=== PATIENT | female | born 1940 | race Caucasian/White ===

== ENCOUNTER 2017-07-28 07:14 | Day surgery (SDC) | payer MEDICARE ==
[~2017-07-28] VITALS: Ht 162.6 cm; Wt 96.8 kg
[2017-07-28] MEDS ORDERED: IOHEXOL 350 MG/ML 50 ML BTL (for Cath Lab) OTHER ONE (07:15)
[2017-07-28] MEDS ORDERED: NS 1000P @30 MLS/HR (KVO) IV SCH (07:45)
[2017-07-28 07:48] VITALS: BP 166/66; PULSE 58; RESP 18; TEMP 97.8; O2SAT 96
[2017-07-28 08:01] LABS: AUTOMATED NEUTROPHIL # 2.2 TH/MM3 (1.8-7.7); BASOPHIL % 0.9 % (0.0-2.0); EOSINOPHIL # 0.2 TH/MM3 (0-0.4); EOSINOPHIL % 4.5 % (0.0-4.0); HEMOGLOBIN 11.8 GM/DL (11.6-15.3); LYMPH % 23.8 % (9.0-44.0); LYMPHOCYTE # 0.8 TH/MM3 (1.0-4.8); MEAN CELL VOLUME 93.5 FL (80.0-100.0); MEAN CORPUSCULAR HEMOGLOBIN 31.4 PG (27.0-34.0); MEAN CORPUSCULAR HGB CONC 33.6 % (32.0-36.0); MEAN PLATELET VOLUME 9.8 FL (7.0-11.0); MONO % 10.2 % (0.0-8.0); MONOCYTE # 0.4 TH/MM3 (0-0.9); NEUT % 60.6 % (16.0-70.0); PLATELET COUNT 159 TH/MM3 (150-450); RED BLOOD COUNT 3.75 MIL/MM3 (4.00-5.30); RED CELL DISTRIBUTION WIDTH 12.6 % (11.6-17.2); WHITE BLOOD COUNT 3.6 TH/MM3 (4.0-11.0)
[2017-07-28] MEDS ORDERED: LOVA20TA PO (08:06)
[2017-07-28] MEDS ORDERED: ACET-822 PO (08:06)
[2017-07-28] MEDS ORDERED: PRAD150C PO (08:06)
[2017-07-28] MEDS ORDERED: SOTA160T PO (08:06)
[2017-07-28] MEDS ORDERED: HYDR25TA5 PO (08:06)
[2017-07-28 08:10] LABS: PROTHROMBIN TIME - PATIENT 10.2 SEC (9.8-11.6)
[2017-07-28 08:16] LABS: ALBUMIN 3.5 GM/DL (3.4-5.0); BICARBONATE 28.3 MEQ/L (21.0-32.0); CALCIUM 8.9 MG/DL (8.5-10.1); CREATININE 1.37 MG/DL (0.50-1.00)
--- NOTE | 2017-07-28 08:25 | RADRPT ---
EXAM DATE/TIME: 07/28/2017 08:06 [facility] COMPARISON: No previous studies available for comparison. INDICATIONS : Chest Pain MEDICAL HISTORY : Cardiovascular disease. SURGICAL HISTORY : Loop recorder ENCOUNTER: Initial ACUITY: 1 day PAIN SCORE: 3/10 LOCATION: chest FINDINGS: The heart and mediastinal contours are within normal limits. Note is made of a loop recorder overlyin g the left chest. There chronic interstitial changes within the pulmonary parenchyma. The lungs are o therwise clear. CONCLUSION: Chronic interstitial changes. No acute abnormality. Evans Urbina MD on July 28, 2017 at 8:22 Board Certified Radiologist. This report was verified electronically.
--- NOTE | 2017-07-28 08:48 | PD.FRAIL ---
Date: July 28, 2017 Height: 162.56 cm Weight: 96.8 kg BMI: 36.6 Assessment Performed: Outpatient Albumin 07/28/17 07:30: Blood Urea Nitrogen 28, Creatinine 1.37, Random Glucose 83, Albumin 3.5, Calcium Level 8.9, Sodium Level 144, Potassium Level 3.6, Chloride Level 108, Carbon Dioxide Level 28.3 Pass/Fail: Pass [place] Activities Daily Living Borja ADL Score: Bathing(bathes self/help in single area): [place] (1), Dressing(gets/puts clothes on self): [place] (1), Toileting(goes without help): [place] ( 1), [facility] or [facility] [place] (1), Continence( complete self-control): [place] (1), Feeding(self, prep by another allowed) : [place] (1), Total: 6 Pass/Fail: Pass (lives alone, still drives within town during day) Manager Programming Strength Grasp 1: 8 Grasp 2: 10 Grasp 3: 8 Average: 8.6 Pass/Fail: Fail 15-Foot Walk 15-Foot Walk (seconds): 9.8 Pass/Fail: Fail (no walking devices) Total Frailty Total Frailty (out of 4): 2 Frailty Index Score Reference Manager Programming Strength: BMI: <=23 Cutoff for flat breakdown processor strength(Kg): <=17 BMI: 23.1-26 Cutoff for flat breakdown processor strength(Kg): <=17.3 BMI: 26.1-29 Cutoff for flat breakdown processor strength(Kg): <=18 BMI: >29 Cutoff for flat breakdown processor strength(Kg): <=21 15-Foot Walk: Height: <=159 cm 15-Foot Walk Cutoff Time: >=7 seconds Height: >159 cm 15-Foot Walk Cutoff Time: >=6 seconds Geeta Feldman RN July 28, 2017 08:48
[2017-07-28] MEDS ORDERED: MIDAZOLAM HCL 2 MG/2 ML VIAL ONE (09:07)
[2017-07-28] MEDS ORDERED: HEPARIN-NS/PF FLUSH BAG 2,000 ML IV FLUSH ONE (09:07)
[2017-07-28] MEDS ORDERED: LIDOCAINE HCL 1% 50 ML VIAL INFIL PRN (10:15)
[2017-07-28] MEDS ORDERED: SODIUM CHLOR 0.9% 250 ML INJ 250 ML IV PRN (10:15)
[2017-07-28] MEDS ORDERED: ONDANSETRON HCL 4 MG/2 ML VIAL IV PUSH PRN (10:15)
[2017-07-28 10:27] LABS: BACTERIA, URINE RARE /hpf; BILIRUBIN, URINE NEG (NEG); BLOOD, URINE NEG (NEG); GLUCOSE,URINE NEG (NEG); HYALINE CAST, URINE 2 /lpf (RARE); KETONE, URINE NEG (NEG); MUCUS URINE FEW /lpf (OCC); NITRITE,URINE NEG (NEG); SQUAMOUS EPITHELIAL CELL URINE <1 /hpf (0-5); URINE COLOR YELLOW (YELLW/STRAW); URINE LEUKOCYTE ESTERASE SMALL (NEG)
[2017-07-28] MEDS ORDERED: ATROPINE SULFATE 1 MG/ML VIAL IV PUSH PRN (10:30)
--- NOTE | 2017-07-28 10:33 | CATHPROC ---
[place] HIS Report Study Information Study Number Admission Scheduled Start Study Start [id number] Jul 28 2017 7:14AM 07/28/2017 Jul 28 2017 9:00AM [facility] Cardiac Catheterization Admit Source Facility Department Other [facility] - Cut Out Worker Physician and Clinical Staff Initial Rafi Peters Wire Bound Box Machine Operatoradam Tavares RN, Memo Other cathlab, cathlab Recorder Juan Patel RCIS(BS) Recorder Drea Caballero BSN Scrub Patsy ChiuRT(R) Procedures Performed Procedure Location (Site) Vessel Name Coronary Angiograms LCA Left Coronary Coronary Angiograms RCA Right Coronary Equipment Time Energy Broker Description Size Mfg Part Number Used/Scraped ARROW INTERNATIONAL CATHETER, FR.7 BALLOON [id number] 09:01 FR 7 Used INC. WEDGE PRESSURE *[id number] TRANSDUCER, TREnsygniaAVE [id number] 09:01 GLEZ FELIX * Used W/STOCKCOCK *[id number] *[id number] 09:01 MEDLINE IND[employer]RIES PACK, CCL CUSTOM * Used *[id number] 09:01 [employer] PACER PEN, SKIN DUAL W/ RULER * Used *[id number] 09:27 MEDTRONIC JL 4.0 DXTERITY CATHETER FR 5 Used *[id number] 09:01 Osper WIRE, 3MMJ .035 180CM 180CM Used *[id number] 09:01 NAMIC MANIFOLD, 2 PORT * Used *[id number] 09:01 NAMIC MANIFOLD, 4 PORT * Used *[id number] 09:01 NYCOMED OMNIPAQUE, 350 MG, 150ML 150ML [id number] Used [id number] 09:01 NOLAN MEDICAL BLANKET,WARM AIR CCL * Used *[id number] 09:01 TERUMO MEDICAL SHEATH, FR5 TERUMO (10CM) FR 5 Used *[id number] 09:01 TERUMO MEDICAL SHEATH, FR7 TERUMO (10CM) FR 7 Used *[id number] Equipment Model, Serial, Lot Number and Expiration Data Description Model Number Serial Number Lot Number Expiration Date JL 4.0 DXTERITY CATHETER [id number] 12-10-2019 History: Current Medications Medication Dosage/Unit Route Frequency Last Date/Time Taken Beta Kenneth Statins (any) PRADAXA History: Allergies Allergy Reaction Penicillins adhesive tape History: Risk Factors Family History of Hypertension Dyslipidemia Previous KS Previous Heart Failure Premature CAD Yes Yes Yes No No Prior Valve Prior PCI Prior CABG Surgery No No No Cerebrovascular Peripheral Artery Chronic Lung On Dialysis Diabetes Disease Disease Disease No No No No No History: Stress Tests Stress or Imaging Studies Performed No History: Other Disease Selection Items HTN History: Other Current Smoker Method Quit Packs a Day Years Used Pack Years No Cigarettes 30 Years Ago 1 10 10 Labs Hgb (g/dl) Hct (%) WBC (l/cumm) Platelets (thousands) 11.60-17.00 35.00-51.00 4.00-11.00 150.00-450.00 11.8 35 3.6 155 Glucose (mg/dl) BUN (mg/dl) Creatinine (mg/dl) BUN:Creatinine (1:x) 74.00-106.00 7.00-18.00 0.50-1.30 10.00-20.00 83 28 1.3 21.5 Na (meq/l) K (meq/l) 136.00-145.00 3.50-5.10 144 3.6 INR (PTT:PT) 0.90-1.10 1 CPK-MB (ng/ML) 0.50-3.60 Not Drawn Medication Medication Total Dose (Bolus/Oral) Medication Total Dosage/Unit 1% XYLOCAINE 20 mL FENTANYL 50 mcg VERSED 1 mg Medications (Bolus/Oral) Medication Time Given Dosage/Unit Administered By Reason VERSED 07/28/2017 9:38:36 AM 1 mg Memo Tavares RN 1 mg VERSED given in lab by Memo Tavares RN in Left Antecubital via Peripheral IV. Ordered by Rafi Devries. FENTANYL 07/28/2017 9:38:43 AM 50 mcg Memo Tavares RN 50 mcg FENTANYL given in lab by Memo Tavares RN in Left Antecubital via Peripheral IV. Ordered by Rafi Coughlin. 1% XYLOCAINE 07/28/2017 9:43:04 AM 20 mL Rafi Devries 20 mL 1% XYLOCAINE given in lab by Rafi Devries in Right Groin via Subcutaneous. Medication (Drip) Medication Time Given Dosage/Unit Concentration/Unit Diluent (ml) Solutio n IV Solutions 07/28/2017 8:59:47 AM 0 mL (IV) 500 NaCl .9 Patient arrived on IV Solutions given by cathlab, cathlab in Left Antecubital via Peripheral IV. Pump /Drip Flow = 20 ml/hr using NaCl .9. Ordered by Rafi Devries. Initial Case Assessment Cardiovascular HR Rhythm NIBP Chest Pain 58 nsr 148/80 0 Edema Present Skin color Skin None Normal Warm Dry Circulatory - Right Pulses Dorsalis Pedis Femoral 1 2 Scale (0,1,2,3,4,d) Circulatory - Left Pulses Dorsalis Pedis Femoral 2 2 Scale (0,1,2,3,4,d) Neurological State Oriented to time-place- Alert Moves all extremities person Respiration - General Respiration Rate SpO2 (%) (B/min) 15 99 Final Case Assessment Cardiovascular HR Rhythm NIBP Chest Pain 62 nsr 156/76 0 Edema Present Skin color Skin None Normal Warm Dry Circulatory - Right Pulses Dorsalis Pedis Femoral 1 2 Scale (0,1,2,3,4,d) Circulatory - Left Pulses Dorsalis Pedis Femoral 2 2 Scale (0,1,2,3,4,d) Neurological State Oriented to time-place- Alert Moves all extremities person Respiration - General Respiration Rate SpO2 (%) (B/min) 15 99 Chronological Log Time Study Chronological Log 8:59:37 Patient arrived via Bed. 8:59:38 Patient Name, D.O.B, / Armband Verified By R.N. 8:59:38 Consent signed by the physician and the patient and verified by the Cut Out Worker staff. 8:59:39 Pre-op and post- op instructions given; patient acknowledges understanding of instructions. 8:59:39 Verbal Stimulation=2 Physical Stimulation=2 Airway=2 Respiration=2 TOTAL=8. (0=absent, 1=li mited, 2=present) 8:59:40 Presedation assessment performed by Cut Out Worker RN. 8:59:41 Immediate Presedation assesment performed by physician. 8:59:41 Patient has been NPO for More than 6Hrs. 8:59:42 Skin Breakdown- none per patient 8:59:44 Patient Warmer Placed on the Table. 8:59:44 Anatoly Prominences Protected 8:59:46 A # 20 IV was noted in the Antecubital (left). Grade = 0 Patient arrived on IV Solutions given by cathlab, cathlab in Left Antecubital via Peripheral IV . Pump/Drip Flow = 20 8:59:47 ml/hr using NaCl .9. Ordered by Rafi Devries. 8:59:48 History and physical on the chart or being dictated. Assessment: Initial Case, HR=58 BPM, Rhythm=nsr, LURC=722/80 mmhg, Chest Pain=0, Edema=None, Col or=Normal, Skin = Warm, Dry Right Pulses: John Ped=1, Femoral=2 9:09:28 Left Pulses: John Ped=2, Femoral=2 Neurological: State=Alert, Ox3, COTTO Respiration: Resp=15 B/min, SpO2=99 % Vitals capture started with the following parameters, Patient=Adult, Interval=5 min, Initial Pre mywrn=689 mmHg, 9:09:30 Deflation Rate=5 mmHg, Cuff placed on Left Arm 9:09:55 Reference ECG taken 9:10:09 HR=57 bpm, EWMC=431/80 mmhg, SpO2=99.0 %, Resp=14 B/min, Pain=0, Jacqueline=10, Pavon=2 9:12:40 Bilateral groins prepped with 2% chlorhexidine, and draped after a 3 minute waiting time. 9:15:08 HR=57 bpm, GUFY=766/80 mmhg, TyE2=664.0 %, Resp=13 B/min, Pain=0, Jacqueline=10, Pavon=2 9:18:25 MD paged 9:20:12 HR=58 bpm, MGNM=392/75 mmhg, SpO2=98.0 %, Resp=10 B/min, Pain=0, Jacqueline=10, Pavon=2 9:21:04 Pressure channel 1 zeroed. 9:25:13 HR=58 bpm, EWPB=917/78 mmhg, SpO2=97.0 %, Resp=10 B/min, Pain=0, Jacqueline=10, Pavon=2 9:27:00 MD responded 9:30:12 HR=59 bpm, VELI=033/79 mmhg, SpO2=99.0 %, Resp=11 B/min, Pain=0, Jacqueline=10, Pavon=2 9:35:13 HR=60 bpm, TZKS=558/73 mmhg, DqO7=019.0 %, Resp=8 B/min, Pain=0, Jacqueline=10, Pavon=2 9:37:41 MD arrived. 9:37:53 Contrast Scanned 9:37:53 Immediate Presedation assesment performed by physician. 9:38:36 1 mg VERSED given in lab by Memo Tavares RN in Left Antecubital via Peripheral IV. Ordered b y Rafi Devries. 9:38:43 50 mcg FENTANYL given in lab by Memo Tavares RN in Left Antecubital via Peripheral IV. Order ed by Rafi Devries. 9:40:14 HR=59 bpm, YQLV=541/76 mmhg, SpO2=92.0 %, Resp=14 B/min, Pain=0, Jacqueline=10, Pavon=2 Time Out. Correct patient, correct procedure, correct physician, power injector not loaded with contrast with surgical 9:40:28 team present. Time Out Concurred by MD and individual staff in procedure. 9:40:42 Case Start 9:40:55 Verbal Stimulation=2 Physical Stimulation=2 Airway=2 Respiration=2 TOTAL=8. (0=absent, 1=moser ited, 2=present) 9:43:04 20 mL 1% XYLOCAINE given in lab by Rafi Devries in Right Groin via Subcutaneous. 9:43:15 Access site was Right Femoral Artery. 9:43:18 A SHEATH, FR5 TERUMO (10CM) FR 5 was advanced into the Fem Art (right) using the Percutaneou s technique. 9:44:50 Access site was Right Femoral Vein. 9:45:00 A SHEATH, FR7 TERUMO (10CM) FR 7 was advanced into the Fem Vein (right) using the Percutaneo us technique. 9:45:13 HR=60 bpm, IVTE=496/70 mmhg, SpO2=92.0 %, Resp=11 B/min, Pain=0, Jacqueline=10, Pavon=2 9:45:20 A CATHETER, FR.7 BALLOON WEDGE PRESSURE FR 7 was inserted via Fem Vein (right) Recorded Pressure: RA, HR=60, Condition=Condition 1 9:47:20 (Right Atrium) RA 8/7/5 Recorded Pressure: RV, HR=61, Condition=Condition 1 9:47:41 (Right Ventricle) RV 38//9 Recorded Pressure: MPA, HR=60, Condition=Condition 1 9:48:50 (Main Pulmonary Artery) MPA Recorded Pressure: PCW, HR=60, Condition=Condition 1 9:49:09 (Pulmonary Capillary Wedge) PCW 9:49:35 Saturation: Site=PA (Pulmonary Artery) , O2=74.5 %, Hgb=11.8 gm/dl, Condition=Condition 1. U sed in calculation. 9:49:42 Saturation: Site=Ao (Aorta) , O2=94.3 %, Hgb=11.8 gm/dl, Condition=Condition 1. Used in calc ulation. 9:50:12 HR=60 bpm, UZFG=738/72 mmhg, SpO2=93.0 %, Resp=16 B/min, Pain=0, Jacqueline=10, Pavon=2 9:50:52 [place] Mae Catheter Removed A JL 4.0 DXTERITY CATHETER FR 5 was advanced over a wire. OMNIPAQUE, 350 MG, 150ML 150ML was us ed for 9:50:53 injections. Recorded Pressure: Ao, HR=59, Condition=Condition 1 9:51:59 (Aorta) Ao 135/57/87 9:52:08 The LCA was injected and visualized at various angles. OMNIPAQUE, 350 MG, 150ML 150ML used. 9:55:13 HR=61 bpm, EQRH=781/69 mmhg, SpO2=94 %, Resp=16 B/min, Pain=0, Jacqueline=10, Pavon=2 After removing the current catheter a JR 4.0 INFINITI CATHETER FR 5 was advanced over a WIRE, 3 MMJ .035 180CM 9:55:45 180CM. 9:57:55 The RCA was injected and visualized at various angles. OMNIPAQUE, 350 MG, 150ML 150ML used. 9:58:38 Catheter was removed 9:58:40 Case End 10:00:12 HR=62 bpm, QIUM=362/76 mmhg, SpO2=95.0 %, Resp=16 B/min, Pain=0, Jacqueline=10, Pavon=2 Assessment: Final Case, HR=62 BPM, Rhythm=nsr, IDDZ=555/76 mmhg, Chest Pain=0, Edema=None, [place] r=Normal, Skin = Warm, Dry Right Pulses: John Ped=1, Femoral=2 10:00:25 Left Pulses: John Ped=2, Femoral=2 Neurological: State=Alert, Ox3, COTTO Respiration: Resp=15 B/min, SpO2=99 % 10:00:49 Catheter(s) removed without difficulty 10:03:52 Arterial sheath removed; pressure applied to access site. 10:05:15 HR=60 bpm, ZKUY=562/82 mmhg, SpO2=99.0 %, Resp=14 B/min, Pain=0, Jacqueline=10, Pavon=2 10:10:53 HR=59 bpm, PEDN=320/77 mmhg, SpO2=95.0 %, Resp=16 B/min, Pain=0, Jacqueline=10, Pavon=2 10:15:58 HR=57 bpm, MZNN=432/73 mmhg, SpO2=97.0 %, Resp=58 B/min, Pain=0, Jacqueline=10, Pavon=2 10:18:31 Venous sheath removed; pressure applied to access site. 10:20:14 HR=59 bpm, EPQV=452/72 mmhg, SpO2=97.0 %, Resp=15 B/min, Pain=0, Jacqueline=10, Pavon=2 10:22:45 No case complications noted. 10:22:45 Cine recording checked. 10:22:47 Bedside Report will be given. 10:22:49 Verbal Stimulation=2 Physical Stimulation=2 Airway=2 Respiration=2 TOTAL=8. (0=absent, 1=li mited, 2=present) 10:22:55 A Left and Right Heart Cath was performed. 10:25:15 HR=58 bpm, DXMS=027/75 mmhg, SpO2=94.0 %, Resp=15 B/min, Pain=0, Jacqueline=10, Pavon=2 10:30:16 HR=58 bpm, KMTC=724/74 mmhg, SpO2=95.0 %, Resp=16 B/min, Pain=0, Jacqueline=10, Pavon=2 10:32:55 Sterile dressing applied to site 10:32:57 Vitals capture stopped. 10:32:59 Patient moved to stretcher End Study - Contrast Media Used In Study Contrast Total Opened (mL) Total Used (mL) Total Wasted (mL) Omnipaque 50 50 0 End Study - Maximum Contrast Load Max Contrast Load (mL) 372.4 End Study - Radiation Exposure Fluoro Time (minutes) 3.2 End Study - Sheaths Sheaths Pulled By Sheath Hold Time (min) Patsy Chiu 30 End Study - Patient Disposition Complications Transferred To Interventional Outcome No Cut Out Worker Holding No attempt made
--- NOTE | 2017-07-28 10:46 | MA ---
cc: Rafi Devries MD DATE: 07/28/2017 PROCEDURE PERFORMED: Cardiac catheterization. INDICATIONS: Severe aortic valve stenosis. METHOD: The risks, benefits and alternatives discussed with the patient. The patient understood and consented to the procedure. The patient brought into the catheterization lab, placed on the catheterization table. The right groin prepped and draped in the usual sterile fashion. The right groin was anesthetized with 2% lidocaine. The right common femoral artery was cannulated. A 5-Italian 11 cm sheath was placed without difficulty. The right femoral vein was accessed and a 7-Italian 11 cm sheath was placed without difficulty. RIGHT HEART CATHETERIZATION: 1. Right atrial pressure measured at 8 mmHg. 2. Right ventricular pressure measured at 38/4 mmHg. 3. Pulmonary arterial pressure measured 37/13 mmHg. 4. Pulmonary capillary wedge pressure 14 mmHg. 5. Cardiac output 7.9 liters per minute. 6. Cardiac index 3.9 liters per minute mg/m2. CORONARY ANGIOGRAPHY: The left coronary circulation was selectively engaged with a 5-Italian JL4 catheter. Right coronary circulation was selectively engaged with a 5-Italian JR4 catheter. FINDINGS: 1. Left main coronary has mild luminal irregularities. 2. Left anterior descending coronary has minor luminal irregularities in the mid segment about 20 to 30%. There is a diagonal branch and subbranch that has about a 50% stenosis just prior to the bifurcation. So there appears to be high grade stenosis. 3. Left circumflex gives rise to an obtuse marginal branch and has mild diffuse disease. 4. Right coronary artery is a dominant vessel giving rise to a posterior descending branch. Right coronary has minor luminal irregularities, gives rise to the posterior descending and posterolateral branches. CONCLUSIONS: 1. Mild nonobstructive coronary disease and moderate branch vessel coronary artery disease. 2. Normal left and right-sided filling pressures. PLAN: At this point, we will evaluate the patient for consideration of aortic valve replacement either via transcatheter modality or surgical. Rafi Devries MD CHIN/DL , 10:10 AM , 10:45 AM
[2017-07-28] MEDS ORDERED: ONDANSETRON ODT 4 MG TAB PO PRN (11:00)
[2017-07-28] MEDS ORDERED: LORazepam 2 MG/ML VIAL IV PUSH PRN (11:00)
[2017-07-28] MEDS ORDERED: BACITRACIN OINT 0.9 GM PKT TOP ONE (11:00)
[2017-07-28] MEDS ORDERED: METOCLOPRAMIDE HCL 10 MG/2 ML VIAL IV PUSH PRN (11:00)
[2017-07-28] MEDS ORDERED: SODIUM CHLOR 0.9% 250 ML INJ 250 ML IV ONE (14:00)
[2017-07-28] MEDS ORDERED: IOHEXOL 350 MG/ML 10 ML VIAL (for RAD DIAG) IVCONTRAST ONE (16:59)
--- NOTE | 2017-07-28 20:23 | RADRPT ---
EXAM DATE/TIME: 07/28/2017 16:44 [facility] COMPARISON: No previous studies available for comparison. INDICATIONS : Evaluate valve IV CONTRAST: 80 cc Visipaque (iodixanol) IV RADIATION DOSE: 12.08 CTDIvol (mGy) MEDICAL HISTORY : Hypertension. Skin cancer SURGICAL HISTORY : None. ENCOUNTER: Initial ACUITY: 1 day PAIN SCALE: 0/10 LOCATION: chest TECHNIQUE: Volumetric scanning was performed using a multi-row detector CT scanner. The data was post processed with a variety of visualization algorithms including full volume maximum intensity projection, multi -planar sliding thin slab reformation, curved planar reformation, and surface rendering techniques. Using automated exposure control and adjustment of the mA and/or kV according to patient size, radiat ion dose was kept as low as reasonably achievable to obtain optimal diagnostic quality images. DIC OM format image data is available electronically for review and comparison. FINDINGS: CARDIAC: Normal vessels without calcification or stenosis. There are no microcalcifications. There is no pericardial effusion AORTIC ROOT/VALVE: Tricuspid valve with moderate calcification and thickening present.. The aortic root measures 3 cm. Mid thoracic aorta measures 2.5 cm with no calcifications. THORACIC AORTA: Direct origin of the left vertebral artery from the aortic arch as a variant of normal. The arch vess els are widely patent. ABDOMINAL AORTA: No evidence of aneurysm, mural thrombus, dissection, mural calcification, or stenosis. CELIAC ARTERY: Celiac artery is widely patent. SMA: Superior mesenteric artery is widely patent. RIGHT RENAL ARTERY: Main and accessory right renal arteries are patent. LEFT RENAL ARTERY: Left renal artery is widely patent. RIGHT COMMON ILIAC: No evidence of aneurysm, mural thrombus, dissection, mural calcification, or stenosis. The common fe moral measures 6-7 mm. LEFT COMMON ILIAC: No evidence of aneurysm, mural thrombus, dissection, mural calcification, or stenosis. The common fe moral measures 7-8 mm. THORAX: Occasional areas of minimal scarring or atelectasis in the right lung. ABDOMEN: Gallstones. PELVIS: Fibroid uterus. Colonic diverticula. CONCLUSION: Thickened calcified aortic valve leaflets. No acute findings or findings to contraindicate aortic remy ve replacement Min Botello MD on July 28, 2017 at 20:11 Board Certified Radiologist. This report was verified electronically.
--- NOTE | 2017-07-29 07:54 | PD.CAR.PN ---
CVT Progress Note Subjective/Hospital Course: late entry, pt seen and evaluated sts data discussed with pt RISK SCORES About the STS Risk Calculator Procedure: AV Replacement Risk of Mortality: 3.56% Morbidity or Mortality: 22.352% Long Length of Stay: 12.051% Short Length of Stay: 19.711% Permanent Stroke: 2.902% Prolonged Ventilation: 17.779% DSW Infection: 0.455% Renal Failure: 5.474% Reoperation: 8.186% Objective: Vital Signs Date Time Temp Pulse Resp B/P (MAP) Pulse Ox O2 Delivery O2 Flow Rate FiO2 07/28/17 15:54 97 Room Air Result Diagram: 07/28/17 0730 07/28/17 0730 Imelda Nick July 29, 2017 07:54
--- NOTE | 2017-07-29 10:28 | MB ---
cc: Nelson García MD, Surya P MD Terwilliger, Jacqueline R ARNP DATE: 07/28/2017 DATE OF : 1940 IDENTIFYING DATA: A 69-year-old female, patient of Dr. Faizan Panda. REASON FOR CONSULTATION: Severe aortic stenosis, symptoms including unexplained gaps in memory, three episodes of syncope in the past. Apparently had worked up with Neurology, Neuropsych, was told no dementia. However, she did have an MRI of the brain 06/20/2017 that showed no acute intracranial abnormality, no acute infarct; however, there were diffuse involutional changes, chronic microvascular ischemia. Remote left gangliocapsular lacunar infarct. Carotid ultrasound showed no evidence for carotid stenosis. She underwent transthoracic echocardiogram which showed ejection fraction of 50-55%, the aortic valve area 0.84 with some trivial mitral regurgitation, transesophageal echocardiogram. PAST MEDICAL HISTORY: Includes anxiety, syncope, chronic kidney disease stage III, cervical disk displacement, hyperlipidemia, hypertension, obesity, body mass index of 30, paroxysmal atrial fibrillation, pulmonary sarcoidosis. PAST SURGICAL HISTORY: Includes arthrodesis, C2 anterior interbody decompression by Dr. Rivera, history of bilateral cataract surgery, colonoscopy. ALLERGIES: PENICILLIN. ADHESIVE TAPE. HOME MEDICATIONS: 1. Hydrochlorothiazide. 2. Lovastatin. 3. Multivitamin. 4. Pradaxa. 5. Sotalol. 6. Tylenol. SOCIAL HISTORY: The patient lives alone. Former smoker, smoked for about 10 years, quit 30 years ago. Does her own cooking and cleaning. She drives just in the local area of [facility]. The patient is . REVIEW OF SYSTEMS: GENERAL: No night sweats, fever, heat and cold intolerance. SKIN: No psoriasis, itching or hives. HEENT: No blurred vision, hearing loss. RESPIRATORY: No cough, shortness of breath. CARDIOVASCULAR: As above in the HPI. GASTROINTESTINAL: No diarrhea or vomiting. GENITOURINARY: No burning, frequency, urgency. OFFC SPEC: No history of TIA. Per the patient, she has no history of TIA or CVA. ENDOCRINOLOGY: No diabetes or hypothyroidism. PHYSICAL EXAMINATION: VITAL SIGNS: Blood pressure 110/60, heart rate of 80, temperature max 97.6. GENERAL: Awake, alert, in no acute distress. HEENT: Head is normocephalic, atraumatic. Pupils equal and reactive. Oral mucosa pink, moist. NECK: Supple. No JVD. HEART: Sounds S1, S2. Regular rate and rhythm. Grade 3/6 systolic murmur. LUNGS: Clear to auscultation. No wheezes, rales or rhonchi. ABDOMEN: Obese, soft, nontender. No masses or organomegaly. EXTREMITIES: She has got some trace edema. Good distal pulses. She does have a hematoma to her left anterior lower leg. She is not sure of how she hurt herself. IMPRESSION: This is a 69-year-old female with severe aortic stenosis with a valve area 0.84. STS risk for mortality 2.81. However, her other risks include paroxysmal atrial fibrillation, pulmonary sarcoidosis, MRI of the brain which does show evidence of a remote left gangliocapsular lacunar infarct, recent syncope. RECOMMENDATIONS: Recommendation is to proceed for TAVR procedure. Dictated by UZIEL Elder Patient examined and chart reviewed. Agree with above. 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 She also has bruises that she cannot explain. Given this and her other significant medical comrobidities, I think she will do better with TAVR therapy. MD MARKEL Morales/ERICH , 05:21 PM , 05:55 PM RITA
== END 2017-07-28 17:50 | disposition home or self-care (01) ==
LOC: HDIC 07:14 → HDOC 07:14
PROVIDERS: ATTEND Internal Medicine
DX: I35.0 Nonrheumatic aortic (valve) stenosis (principal); I25.10 Atherosclerotic heart disease of native coronary artery without angina pectoris; R07.9 Chest pain, unspecified; R55 Syncope and collapse; I48.0 Paroxysmal atrial fibrillation; E78.5 Hyperlipidemia, unspecified; I12.9 Hypertensive chronic kidney disease with stage 1 through stage 4 chronic kidney disease, or unspecified chronic kidney disease; N18.3 Chronic kidney disease, stage 3 (moderate); M50.20 Other cervical disc displacement, unspecified cervical region; E66.9 Obesity, unspecified; Z68.30 Body mass index [BMI] 30.0-30.9, adult; D86.0 Sarcoidosis of lung; Z79.01 Long term (current) use of anticoagulants; F41.9 Anxiety disorder, unspecified; Z85.828 Personal history of other malignant neoplasm of skin; Z01.818 Encounter for other preprocedural examination
CPT/HCPCS: 71046; 74174; 80048; 81001; 82040; 82810; 85025; 85610; 85730; 86850; 86900; 86901; 87641; 93456; 94010; 99152; 99153; C1769; C1893; J1644; J2250; J3010; J7050; Q9967

== ENCOUNTER 2017-09-24 10:25 | Inpatient (IN) ==
[2017-09-24] MEDS ORDERED: Aspirin 325 MG Tablet PO SCH (11:15)
[2017-09-24] MEDS ORDERED: Chlorhexidine Gluconate 2% 1 Pack (2 Cloths) TOPICAL SCH (11:15)
[2017-09-24] MEDS ORDERED: Mupirocin 2% Nasal Oint Topical Syringe EACH NARE SCH (11:15)
[2017-09-24] MEDS ORDERED: Glycopyrrolate Inj 1 MG/5 ML Syringe IV.PUSH ONE (12:00)
[2017-09-24] MEDS ORDERED: Phenylephrine/NS 1000 MCG/10ML Syringe IV.PUSH ONE (12:00)
[2017-09-24] MEDS ORDERED: Normosol-R pH 7.4 Inj 1,000 ML IV.CONT ONE (12:00)
[2017-09-24] MEDS ORDERED: Lidocaine PF 1% Inj 5 ML Syringe INFILTRATN ONE (12:00)
[2017-09-24] MEDS ORDERED: Sodium Chlor 0.9% Inj 1,000 ML IV.SIG ONE (12:00)
[2017-09-24] MEDS ORDERED: Vancomycin Inj 1 GM/200 ML PIGGYBACK IV.SIG SCH (12:00)
[2017-09-24] MEDS ORDERED: Neostigmine Inj 5 MG/5 ML Syringe IV.PUSH ONE (12:00)
[2017-09-24] MEDS ORDERED: fentaNYL Citrate Inj 100 MCG/2 ML Ampul ONE (12:30)
[2017-09-24] MEDS ORDERED: Heparin 10,000 UNITS/10 ML Vial (for IV use) ONE (13:03)
[2017-09-24] MEDS ORDERED: Protamine Sulfate Inj 50 MG/5 ML Vial ONE (13:03)
--- NOTE | 2017-09-24 13:23 | MH ---
cc: Rafi Devries MD DATE OF ADMISSION: 09/24/2017 INDICATION: Aortic stenosis. HISTORY OF PRESENT ILLNESS: This is a very nice 77-year-old female. She has history of chronic kidney disease, hyperlipidemia, hypertension, paroxysmal atrial fibrillation, who presented with 3 episodes of syncope. She has a known remote infarct. Transthoracic echocardiogram revealed left ventricular systolic ejection fraction of 55% and severe aortic stenosis. She underwent a thorough evaluation and workup and is now here for a scheduled transcatheter aortic valve replacement. PAST MEDICAL HISTORY: Anxiety, syncope, chronic kidney disease, cervical disk displacement, hyperlipidemia, hypertension, obesity, paroxysmal atrial fibrillation, pulmonary sarcoidosis. ALLERGIES: PENICILLIN AND ADHESIVE TAPE. HOME MEDICATIONS: 1. Hydrochlorothiazide. 2. Lovastatin. 3. Multivitamin. 4. Pradaxa. 5. Sotalol. 6. Tylenol. SOCIAL HISTORY: Remote tobacco use. No drug use. REVIEW OF SYSTEMS: A 12-point review is performed and negative unless otherwise noted in the History of Present Illness. PHYSICAL EXAMINATION: VITAL SIGNS: Stable. Blood pressure 110/55 mmHg, heart rate 80. GENERAL: Alert and oriented x3, in no acute distress. HEENT: Shows pupils reactive to light and accommodation. Extraocular movements are intact. NECK: No elevation of jugular venous distention. No thyromegaly. No lymphadenopathy. No carotid bruits. LUNGS: Clear to auscultation bilaterally. CARDIOVASCULAR: Irregularly irregular rhythm with a grade 3/6 crescendo decrescendo murmur. ABDOMEN: Nontender, nondistended. Bowel sounds positive. No hepatosplenomegaly. EXTREMITIES: Show no clubbing, cyanosis or edema. Good peripheral pulses. NEUROLOGIC: Cranial nerves intact. Motor and sensory grossly intact. LABORATORY DATA: WBC 3.6, hemoglobin 11.8, platelet count is 159. INR is 1. Sodium 144, potassium 3.6, BUN is 28, creatinine is 1.37. PREOPERATIVE ASSESSMENT: STS score 3.5% . Body mass index 34. Frailty score 2/4. The electrocardiogram shows sinus rhythm. Pulmonary function test shows FEV1 of 1.37 with moderate to severe restriction. Echocardiogram 06/21/2017 shows jet velocity of 4.3 meters/second, mean gradient 44 mmHg, calculated aortic valve area of 0.7 cm2. Cardiac catheterization performed on 07/28/2017 shows moderate diagonal branch disease, otherwise only mild luminal irregularities. Computed tomography analysis on 07/28/2017: Short annulus 20.5 mm, long annulus diameter 25.7 mm, perimeter 73.0 mm. Sinus of Valsalva is 29.1 mm. Sinotubular junction 28.0 mm. Left coronary height 10 mm. Right coronary height 15.7 mm. Minimal luminal diameter on the right and left are both 6.6 mm. ASSESSMENT: Severe aortic valve stenosis, functional [place] Heart Association class III. PLAN: The patient was evaluated by Cardiothoracic Surgery, both Dr. García and Dr. Kendall, and agree that this patient is an intermediate risk for surgical aortic valve replacement given comorbidities. She has elected to proceed with transcatheter aortic valve replacement. We will plan with a 29 mm Evolut R Medtronic bioprosthetic aortic valve. The risks, benefits and alternatives were discussed with the patient. The patient understood and consents to proceed. MD CHIN Lala/SB , 01:00 PM , 01:21 PM
--- NOTE | 2017-09-24 14:05 | ECG ---
Date Performed: 09/24/2017 Time Performed: 11:13:32 PTAGE: 77 years EKG: Sinus bradycardia. Prolonged QT interval Leftward axis Anterolateral ST-T changes are nonsp ecific Borderline ECG NO PREVIOUS TRACING DOCTOR: Moises Gutierrez Interpretating Date/Time 09/24/2017 14:03:57
[2017-09-24] MEDS ORDERED: Iohexol Inj 350 MG/ML 100 ML Bottle (for RAD Diag) IVCONTRAST ONE ×2 (14:39→15:15)
[2017-09-24] MEDS ORDERED: hydrALAZINE HCl Inj 20 MG/ML Vial IV.PUSH PRN (14:47)
[2017-09-24] MEDS ORDERED: Atropine Inj 1 MG/ML Vial IV.PUSH PRN (14:47)
[2017-09-24] MEDS ORDERED: Acetaminophen 325 MG Tablet PO PRN (14:47)
[2017-09-24] MEDS: Sod Chloride 0.9% Inj 1,000 ML IV.CONT SCH (14:51)
--- NOTE | 2017-09-24 15:00 | P.OP ---
- Preoperative Diagnosis (1) Aortic stenosis (2) Diastolic heart failure - Postoperative Diagnosis (1) Aortic stenosis (2) Diastolic heart failure Date of procedure: 09/24/17 Procedure: Transcatheter aortic valve replacement with a 29 Evolut Pro tissue valve LEESA Bilateral percutaneous femoral artery access with Perclose closure on the left Right percutaneous femoral venous access Aortography Fluoroscopy Implants: 29 Evolut PRO tissue valve Anesthesia: GETA Surgeon: Laurie Kendall MD Co-surgeon - Minor Operation and Findings: The risks, benefits, complications, treatment options, and expected outcomes were discussed with the patient. The possibilities of reaction to medication, pulmonary aspiration, perforation of viscus, bleeding, recurrent infection, the need for additional procedures, failure to diagnose a condition, and creating a complication requiring transfusion or operation were discussed with the patient. The patient concurred with the proposed plan, giving informed consent. The site of surgery properly noted/marked. The patient was taken to hybrid operating room, identified as Courtney Gore and the procedure verified as Transcatheter Aortic Valve Replacement. A Time Out was held and the above information confirmed. Standard monitoring lines and Baez catheter were placed. General anesthesia was induced. The patient was prepped and draped in a sterile fashion. Initially, right femoral arterial and venous access was acquired using a Seldinger percutaneous technique. The details of this procedure were dictated under separate note by cardiology. Once a pigtail was positioned in the aortic annulus and a temporary transvenous pacemaker wire was placed in the right ventricular apex and tested, the left femoral artery was accessed using a needle followed by a guidewire under fluoroscopic guidance. The patient was heparinized and 2 Perclose devices deployed for later closure. Serial dilators were used to dilate the left femoral artery to 16 Sami caliber. The Cook sheath was then inserted up to the distal abdominal aorta. Arch aortography was performed to define the implant view. A 29 Evolut PRO transcatheter aortic valve was then positioned in the annulus and deployed with the patient being paced at 120 beats per minute. Following deployment, the valve apparatus was withdrawn and arch aortography and LEESA were performed to assess the valve. The valve had no significant perivalvular leaks. Gradients were then measured and the sheath was removed. Perclose sutures were secured with good hemostasis. Protamine was administered. Sterile dressings were placed. At the end of the operation, all sponge, instruments, and needle counts were correct. The patient was transferred to the CVICU in stable condition. Findings: Uneventful deployment of 29 Evolut PRO Implants: 29 Evolut PRO Complications: none Disposition: to CVICU in stable condition
--- NOTE | 2017-09-24 15:52 | ECHRPT ---
Indication: CONCLUSIONS Normal left ventricular size. Mild concentric left ventricular hypertrophy. The left ventricular systolic function is normal with an estimated ejection fraction in the range of 55-60%. Structurally normal mitral valve. Trace mitral valve regurgitation. Severe aortic valve stenosis status post transcatheter aortic valve bioprosthesis. Trace aortic valve paravalvular regurgitation. BP: / HR: Rhythm: Technical Quality: Medications Complications Proc. Components The patient was brought to the diagnostic imaging area in a fasting state after o btaining an informed consent. The patient was premedicated with IV Versed and IV Fentanyl. The supervisor feed mill ior pharynx was sprayed with Cetacaine spray and the patient was administered viscous Xylocaine 2 %. The LEESA probe was passed into the posterior pharynx , mid-esophagus, distal esophagus, and gastric fundus. LEESA was performed at multiple levels. The patient tolerated the procedure well and there were no complications. The patient was transferred to the floor in satisfactory condition.. FINDINGS LEFT VENTRICLE Normal left ventricular size. Mild concentric left ventricular hypertrophy. The left ventricular systolic function is normal with an estimated ejection fraction in the range of 55-60%. RIGHT VENTRICLE Normal right ventricular size and systolic function. LEFT ATRIUM The left atrial size is normal. RIGHT ATRIUM The right atrial size is normal. ATRIAL APPENDAGES Normal left atrial appendage size with no evidence of thrombus formation. ATRIAL SEPTUM Normal atrial septal thickness without atrial level shunting by limited color doppler interrogation. AORTA The aortic root and proximal ascending aorta are normal in size on limited imaging. MITRAL VALVE Structurally normal mitral valve. Trace mitral valve regurgitation. AORTIC VALVE Severe aortic valve stenosis status post transcatheter aortic valve bioprosthesis. Trace aortic valve paravalvular regurgitation TRICUSPID VALVE Structurally normal tricuspid valve. No tricuspid valve stenosis or regurgitation. VESSELS The inferior vena cava is normal in size. PULMONARY VALVE The pulmonary valve is not well visualized. PERICADIUM No pericardial effusion. Rafi Devries MD, FACC (Electronically Signed) Final Date:24 September 2017 15:51
--- NOTE | 2017-09-24 16:18 | MA ---
cc: Rafi Devries MD DATE: 09/24/2017 PROCEDURE: Transcatheter aortic valve replacement. PSYCHIATRIC SOCIAL WORKER: Rafi Devries MD, [facility] PRIMARY SURGEON: Dr. Laurie Kendall MD PROCEDURES PERFORMED: 1. Fluoroscopy with interpretation. 2. Temporary transvenous pacemaker placement. 3. Transcatheter aortic valve replacement. 4. Ascending aortography. 5. Transesophageal echocardiogram. METHOD: Risks, benefits and alternatives discussed with the patient. The patient understood and consented to the procedure. DESCRIPTION OF PROCEDURE: The patient was brought to catheterization lab and placed on the catheterization table. Bilateral groins were prepped and draped in sterile fashion. The right groin was anesthetized with 2% lidocaine. The right common femoral artery and vein were accessed and 5-Emirati 11 cm sheath was placed without difficulty. Left common femoral artery was cannulated. An 8-Emirati sheath was placed, followed by 2 Perclose devices and a 16-Emirati sheath. ASCENDING AORTOGRAPHY: Ascending aortography was performed in right anterior oblique view with good opacification. The 3 cusps were identified in parallax. TRANSESOPHAGEAL ECHOCARDIOGRAM: Please see separate report. TEMPORARY TRANSVENOUS PACEMAKER: Right jugular venous sheath was placed and the balloon tipped temporary transvenous pacemaker was advanced to the right ventricular apex. Appropriate capture and pacing was confirmed. TRANSCATHETER AORTIC VALVE REPLACEMENT: A 6-Emirati AL1 catheter was advanced to ascending aorta. A 0.035-inch Amplatz Super Stiff wire was advanced across the aortic valve into the left ventricle. Amplatz catheter was advanced into the left ventricle and the wire removed. J wire was advanced into the apex of left ventricle and the catheter removed. 5-Emirati pigtail catheter was advanced to the apex and the wire removed, followed by a 0.035 inch 260 cm Confida wire to the left ventricular apex. The catheter was removed. The 16-Emirati sheath was then removed and wire left in place. The 16-Emirati Medtronic, 29 mm Evolut R aortic valve device and sheath were advanced into the left common femoral artery up to the level of the descending aorta. The device was then advanced across the aortic valve. With fluoroscopic and angiographic guidance, position of the valve was confirmed and the device was fully deployed. After confirmation of appropriate positioning the device was then released. Repeat transesophageal echocardiogram did reveal no significant paravalvular leak with resolution of aortic stenosis. The sheath was removed and 2 Perclose device and 8-Emirati Angio-Seal deployed in the left common femoral artery with good hemostasis and two 5-Emirati VASCADE device was deployed in the right common femoral artery and vein with good hemostasis and heparin was administered throughout the entire procedure to maintain appropriate anticoagulation. CONCLUSIONS: 1. Successful transcatheter aortic valve replacement. 2. Successful utilization transesophageal echocardiography and temporary transvenous pacemaker. Intraoperative postop deployment transesophageal echocardiogram findings: Post-aortic valve area of 1.6 squared. Post-implant mean gradient 6 mmHg. Post-implant peak velocity 1.8 meters per second, and there was trivial paravalvular aortic insufficiency. PLAN: The patient will be monitored closely. Will consult electrophysiology for input related to temporary transvenous pacemaker and/or permanent pacemaker. We will initiate Plavix. We will hold off on initiation of Pradaxa for approximately 48 hours, at which point she will be on only Pradaxa and Plavix in the long run. Will obtain a limited transthoracic echocardiogram tomorrow. Rafi Devries MD CHIN/TL , 03:03 PM , 04:16 PM
--- NOTE | 2017-09-24 20:03 | P.PCN ---
Date of procedure: 09/24/17 Pre-op diagnosis: severe aortic stenosis Post-op diagnosis: same Procedure: Procedure: Transesophageal Echocardiography Diagnosis: Severe aortic stenosis Indications: Perioperative planning for transcatheter aortic valve replacement Consent: Obtained Anesthesia: General endotracheal anesthesia Description of the Procedure: The patient was sedated and mechanically ventilated. The echo probe was inserted easily and without resistance. At the conclusion of the procedure, the echo probe was removed. Please see detailed echocardiogram report for formal findings. Preliminary Findings (not confirmed): Pre-procedure: 1) grossly preserved biventricular function 2) Severe aortic stenosis 3) no clinically significant AI, MR, TR 4) no pericardial effusion 5) no evidence of intra-atrial shunting by color flow Doppler Post-procedure: 1) s/p successful placement of transcatheter aortic valve 2) no evidence of bioprosthetic valve stenosis 3) no perivalvular leak 4) no pericardial effusion The patient tolerated the procedure well with no hemodynamic instability. There were no immediate complications noted. There was minimal EBL. I personally performed the procedure.
--- NOTE | 2017-09-24 20:10 | P.CONCC ---
History of Present Illness Service: Critical Care Medicine Consult date: 09/24/17 Requesting Physician: Rafi Devries Reason for Consult: perioperative management of medical comorbidities Primary Care Provider: Tiffany Moreno Family Provider: Tiffany Moreno History of Present Illness: This is a 77-year-old female with severe symptomatic aortic stenosis who presents for elective transcatheter aortic valve replacement via groin access. She underwent uncomplicated procedure. She arrives to the CVICU extubated arousing from anesthesia. Due to her arousal from anesthesia a full and complete review of systems is unobtainable. Her limited review systems is negative for nausea, vomiting, headache, sore throat, chest pain, shortness of breath. Review of Systems Arousing from anesthesia. Limited review of systems negative unless stated in the HPI. All other systems reviewed negative except as stated in HPI, unobtainable due to mental status PMFSH - History History Provided By: Patient, Medical Record - Medical History Medical History: Medical History (Last Updated 09/24/17 @ 11:17 by Sonam Crane RN) Aortic stenosis Basal cell carcinoma of skin of face Chronic kidney disease Hyperlipidemia Hypertension - Tobacco History Smoking Status: Former smoker - Alcohol History How Often Do You Have a Drink Containing Alcohol: 2 to 3 times a week Medications and Allergies Active Medications: Active Medications Acetaminophen (Tylenol) 650 mg PO Q4H PRN PRN Reason: PAIN SCALE 1 TO 2 Stop: 09/25/17 14:46 Aspirin (Aspirin) 325 mg PO DUMPER OPERATOR [facility] Stop: 09/27/17 11:12 Last Admin: 09/24/17 11:36 Dose: 325 mg Atropine Sulfate (Atropine Inj) 0.5 mg IV.PUSH UNSCH PRN PRN Reason: VAGAL REPONSE Stop: 09/25/17 14:46 Chlorhexidine Gluconate (Chlorhexidine 2% Cloth) 3 pack TOPICAL [employer]MP[employer] [facility] Stop: 09/27/17 11:12 Clonidine HCl (Catapres) 0.2 mg PO Q6H PRN PRN Reason: SBP > 160 mmHg Clopidogrel Bisulfate (Plavix) 75 mg PO DAILY TAM Ferrous Sulfate (Ferosul) 325 mg PO DAILY TAM Furosemide (Lasix) 20 mg PO DAILY TAM Hydralazine HCl (Apresoline Inj) 10 mg IV.PUSH Q30M PRN PRN Reason: SBP > 160 mmHg Last Admin: 09/24/17 16:39 Dose: 10 mg Vancomycin/Sodium Chloride (Vancomycin Inj) 1 gm in 200 mls @ 200 mls/hr IV.SIG DUMPER OPERATOR [facility] Stop: 09/27/17 11:13 Last Infusion: 09/24/17 14:47 Dose: 200 mls/hr Sodium Chloride (Ns Inj) 1,000 mls @ 125 mls/hr IV.CONT .Q8H [facility] Last Infusion: 09/24/17 14:51 Dose: 125 mls/hr Mupirocin (Bactroban 2% Nasal Oint) 1 applicatio EACH NARE [employer]MP[employer] [facility] Stop: 09/27/17 11:12 Oxycodone/Acetaminophen (Percocet 5/325 Mg) 1 tab PO Q6H PRN PRN Reason: PAIN SCALE 3 TO 5 Last Admin: 09/24/17 16:01 Dose: 1 tab Povidone Iodine (Betadine 5% Antisepsis Kit) 1 applicatio TOPICAL DUMP[employer] [facility] Stop: 09/27/17 11:12 Allergies Allergy/AdvReac Type Severity Reaction Status Date / Time adhesive tape Allergy Unknown Rash Verified 09/24/17 10:53 Penicillins Allergy Unknown Rash Verified 09/24/17 10:53 Home Medications Medication Instructions Recorded Confirmed Type dabigatran etexilate [Pradaxa] 150 mg PO BID 09/24/17 09/24/17 History hydrochlorothiazide 25 mg PO DAILY 09/24/17 09/24/17 History levetiracetam [Keppra] 250 mg PO Q12H 09/24/17 09/24/17 History lovastatin 20 mg PO QPM 09/24/17 09/24/17 History sotalol 80 mg PO Q12H 09/24/17 09/24/17 History Physical Exam Vital signs: Vital Signs 09/24/17 11:13 09/24/17 15:00 09/24/17 15:50 Temperature 36.7 C 36.7 C Pulse Rate 66 55 L 55 L Respiratory Rate 18 16 Blood Pressure 126/78 160/62 H Pulse Oximetry 99 100 Intake & Output 09/24/17 09/24/17 09/25/17 06:59 18:59 06:59 Intake Total 2100 / 2100 Output Total 730 / 730 Balance 1370 / 1370 Weight 95.8 kg Intake: IV 800 / 800 NS Inj 1,000 ML @ 125 mls/hr IV 800 / 800 .CONT .Q8H [facility] Rx#:[id number] Vancomycin Inj 1 gm In 200 ml @ 0 / 0 200 mls/hr IV.SIG DUMPER OPERATOR [facility] Rx#:[id number] Anesthesia Amount 1300 / 1300 Output: Estimated Blood Loss 300 / 300 Urine Amount (Catheter) 430 / 430 Indwelling Temp Sensing 430 / 430 Catheter Other: Weight On Admission 95.8 kg Narrative: GENERAL: Frail elderly female lying in bed, arousing from anesthesia HEENT: Normocephalic. Atraumatic. Pupils equal, round, reactive, conjugate. Mucous membranes are moist NECK: Trachea is midline. There is no JVD. right IJ introducer sheath with transvenous pacer in place, site is clean and dry, dressing intact. CHEST: unlabored. equal chest rise. nc o2. CARDIOVASCULAR: normal rate, regular rhythm. Transvenous pacer is set VVI at a backup rate of 50. not currently paced. ABDOMEN: Soft, nontender, nondistended. No guarding. MUSCULOSKELETAL: Pulses 2+. No peripheral edema. bilateral groin sites are clean and dry, no evidence of hematoma, dressing intact. distal LE pulses are Dopplerable. NEUROLOGICAL: RASS -2. Arousing from anesthesia. follows commands. moves all extremities. no focal deficits. - Urinary Catheter Management Indwelling Temp Sensing Catheter Cath placed during this visit: yes Reason for continuing: Hourly intake/output Insertion date: 09/24/17 Insertion time: 13:18 Assessment and Plan - Assessment and Plan Plan: Assessment: 77-year-old female postop day 0 status post transcatheter aortic valve replacement. Admit to ICU for close monitoring. s/p TAVR 09/24 via common iliac access - frequent neurovascular checks - close uop monitoring - mivf - anticoagulation per Dr. Devries Hypertension - restart home meds prn for goal sbp < 180 Hyperlipidemia - restart home statin Chronic Kidney disease, unknown stage - mivf - close uop monitoring Seizure disorder - restart home keppra I.S. to bedside OOB after flat time advance diet as tolerated If remains stable overnight, can transition out of ICU tomorrow. Critical care medicine will continue to follow while patient remains in the CVICU.
[2017-09-24] MEDS: levETIRAcetam 250 MG Tablet PO SCH (22:11)
[2017-09-25 04:33] LABS: Hematocrit 30.1 % (35.0-46.0); Hemoglobin 10.1 gm/dL (11.6-15.3); Mean Corpuscular HGB Conc 33.8 % (32.0-36.0); Mean Corpuscular Volume 91.8 fL (80.0-100.0); Mean Platelet Volume 9.3 fL (7.0-11.0); Platelet Count 123 th/mm3 (150-450); Red Blood Count 3.28 mil/mm3 (4.00-5.30); White Blood Count 5.7 th/mm3 (4.0-11.0)
[2017-09-25 05:13] LABS: Calcium 8.9 mg/dL (8.5-10.1); Carbon Dioxide 21.5 meq/L (21.0-32.0); Potassium 3.5 meq/L (3.5-5.1)
--- NOTE | 2017-09-25 08:30 | P.PNCA ---
Subjective Interval history: doing well complains of "back pain" from being in bed yesterday so long no other complaints Physical Exam Vital signs: Vital Signs 09/24/17 11:13 09/24/17 15:00 09/24/17 15:50 Temperature 98.0 F 98.0 F Pulse Rate 66 55 L 55 L Respiratory Rate 18 16 Blood Pressure 126/78 160/62 H Pulse Oximetry 99 100 09/24/17 20:00 09/24/17 21:00 09/25/17 00:00 Temperature 97.6 F 97.8 F Pulse Rate 67 68 Respiratory Rate 18 18 Blood Pressure 147/50 H 124/46 L Pulse Oximetry 100 98 99 09/25/17 07:40 Temperature Pulse Rate Respiratory Rate Blood Pressure Pulse Oximetry 97 Intake & Output 09/24/17 09/25/17 09/25/17 18:59 06:59 18:59 Intake Total 2100 / 2100 Output Total 730 / 730 Balance 1370 / 1370 Weight 95.8 kg Intake: IV 800 / 800 NS Inj 1,000 ML @ 125 mls/hr IV 800 / 800 .CONT .Q8H [facility] Rx#:[id number] Vancomycin Inj 1 gm In 200 ml @ 0 / 0 200 mls/hr IV.SIG DECK WORKER [facility] Rx#:[id number] Anesthesia Amount 1300 / 1300 Output: Estimated Blood Loss 300 / 300 Urine Amount (Catheter) 430 / 430 Indwelling Temp Sensing 430 / 430 Catheter Other: Weight On Admission 95.8 kg - Constitutional no acute distress - Routine HEENT Exam Eye: Present: PERRL ENT: Present: mucous membranes moist - Routine Neck Exam Absent: JVD - Routine Respiratory Exam Present: CTA bilaterally - Routine Cardiovascular Exam Present: RRR, murmur Comments: / SM - Routine Abdominal Exam Present: soft, normoactive bowel sounds - Urinary Catheter Management Indwelling Temp Sensing Catheter Cath placed during this visit: yes Reason for continuing: Hourly intake/output Insertion date: 09/24/17 Insertion time: 13:18 Assessment and Plan - Plan aortic stenosis - s/p TAVR LBBB - new. await EP input. NPO. possible EPS ambulate continue temp pacer till EP evaluation hold BB asa plavix statin transfer to intermediate level of care
[2017-09-25] MEDS: Ferrous Sulfate 325 MG Tablet PO SCH (08:50)
[2017-09-25] MEDS: Furosemide 40 MG Tablet PO SCH (08:50)
[2017-09-25] MEDS: levETIRAcetam 250 MG Tablet PO SCH ×2 (08:50→21:39)
[2017-09-25] MEDS: Sod Chloride 0.9% Inj 1,000 ML IV.CONT SCH ×4 (11:46→21:40)
[2017-09-25] MEDS ORDERED: Phenylephrine/NS 1000 MCG/10ML Syringe IV.PUSH ONE (12:00)
[2017-09-25] MEDS ORDERED: Lidocaine PF 1% Inj 5 ML Syringe INFILTRATN ONE (12:00)
--- NOTE | 2017-09-25 12:24 | ECHRPT ---
Indication: S/P TAVR CONCLUSIONS Normal left ventricular size. Mild concentric left ventricular hypertrophy. The left ventricular systolic function is grossly normal on limited imaging. Status-post bioprosthetic percutaneous aortic valve replacement. No aortic valve regurgitation. Aortic valve mean gradient is 16 mmHg. BP: / HR: Rhythm: MEASUREMENTS (Male / Female) Normal Values Technical Quality: 2D ECHO LVOT Diameter 1.3 cm Aortic Root Diameter 2.2 cm M-MODE LV Diastolic Diameter MM 3.9 cm 4.2 - 5.9 / 3.9 - 5.3 cm LV Systolic Diameter MM 2.4 cm LV Ejection Fraction MM Teich 70.9 % IVS Diastolic Thickness MM 1.1 cm 0.6 - 1.0 / 0.6 - 0.9 cm LVPW Diastolic Thickness MM 1.1 cm 0.6 - 1.0 / 0.6 - 0.9 cm LV Relative Wall Thickness MM 0.6 0.24 - 0.42 / 0.22 - 0.42 RV Diastolic Diameter MM 1.6 cm DOPPLER AV Peak Velocity 274.0 cm/s AV Peak Gradient 30.0 mmHg AV Mean Gradient 16.0 mmHg AV Velocity Time Integral 55.5 cm LVOT Peak Velocity 157.0 cm/s LVOT Peak Gradient 9.9 mmHg LVOT Velocity Time Integral 27.8 cm AV Area Cont Eq vti 0.7 cm AV Area Cont Eq pk 0.8 cm FINDINGS LEFT VENTRICLE Normal left ventricular size. Mild concentric left ventricular hypertrophy. The left ventricular systolic function is grossly normal on limited imaging. RIGHT VENTRICLE Normal right ventricular size and systolic function. LEFT ATRIUM The left atrial size is normal. RIGHT ATRIUM The right atrial size is normal. ATRIAL SEPTUM Normal atrial septal thickness without atrial level shunting by limited color doppler interrogation. AORTA The aortic root and proximal ascending aorta are normal in size on limited imaging. MITRAL VALVE Structurally normal mitral valve. No mitral valve stenosis or regurgitation. AORTIC VALVE Status-post percutaneous aortic valve replacement. No aortic valve regurgitation. Aortic valve mean gradient is 16 mmHg. TRICUSPID VALVE Structurally normal tricuspid valve. No tricuspid valve stenosis or regurgitation. PULMONARY VALVE The pulmonary valve is not well visualized. VESSELS The inferior vena cava is normal in size. PERICARDIUM No pericardial effusion. Rafi Devries MD, FACC (Electronically Signed) Final Date:25 September 2017 12:22
--- NOTE | 2017-09-25 13:36 | ECG ---
Date Performed: 09/24/2017 Time Performed: 15:27:18 PTAGE: 77 years EKG: Sinus bradycardia with borderline 1st degree A-V block Left axis deviation Left bundle bran ch block Possible inferior infarct - age undetermined Low QRS voltages in limb leads Compared to prev ious tracing Left bundle branch block is new. Clinical correlation is strongly recommended Abnormal E CG PREVIOUS TRACING : 09/24/17 DOCTOR: Syed Alfaro Interpretating Date/Time 09/25/2017 13:30:36
--- NOTE | 2017-09-25 13:38 | ECG ---
Date Performed: 09/25/2017 Time Performed: 03:39:42 PTAGE: 77 years EKG: Sinus rhythm Left axis deviation Left bundle branch block Possible inferior infarct - age undetermined Low QRS vo ltages in precordial leads Clinical correlation is strongly recommended Abnormal ECG NO PREVIOUS TRACING DOCTOR: Syed Alfaro Interpretating Date/Time 09/25/2017 13:35:46
[2017-09-25] MEDS ORDERED: Heparin/NS PF Inj 500 ML ONE (16:47)
--- NOTE | 2017-09-25 17:24 | CATHPROC ---
[employer] HIS Report Study Information Study Number Admission Scheduled Start Study Start [id number] Sep 24 2017 10:25AM 09/25/2017 Sep 25 2017 3:27PM Lilly Service Electrophysiology Study Admit Source Facility Department Other [facility] - Accountant Clerk Physician and Clinical Staff Initial Charmaine Obrien Coil Tier AshelyIssac,RT(R) Coil Tier Priyanka Prado,RT(R) TECH2 Other Anesthesia, DESKTOP PUBLISHER Recorder Yolanda Arteaga,AMANUEL Scrub Chen Schneider,EFRAÍN Procedures Performed Procedure Ablation Procedure Cardioversion Equipment Time Edger Tailer Description Size Mfg Part Number Used/Scraped [id number] 15:29 [employer] BLANKET,WARM AIR CCL * Used *[id number] 15:29 [employer] PACK, CCL CUSTOM * Used *[id number] 15:29 [employer] PACER [place]AS, LIMB * 2530 *[id number] Used [id number] 15:30 [employer] CATHETER, JSN, QUAD FR 5 Used *[id number] 15:30 [employer] CATHETER, JSN, QUAD FR 5 Used *[id number] 15:30 [employer] CATHETER, JSN, QUAD FR 5 Used *[id number] 15:30 [employer] CATHETER, JSN, QUAD FR 5 Used *[id number] 15:30 [employer] SHEATH, EPS, FR5 FAST CATH FR 5 Used *[id number] [id number] 15:30 [employer] SHEATH, EPS, FR5 FAST CATH FR 5 Used *[id number] 15:30 [employer] SHEATH, EPS, FR5 FAST CATH FR 5 Used *[id number] 15:30 [employer] SHEATH, EPS, FR6 FAST CATH FR 6 Used *[id number] History: Allergies Allergy Reaction Penicillins Rash adhesive tape Rash History: Risk Factors Hypertension Dyslipidemia Previous LA Yes Yes Yes Labs Hgb (g/dl) Hct (%) RBC (MIL/MM3) WBC (l/cumm) Platelets (thousands) 11.60-17.00 35.00-51.00 4.00-5.90 4.00-11.00 150.00-450.00 10.0 30 3.2 5.7 123 Glucose (mg/dl) BUN (mg/dl) Creatinine (mg/dl) BUN:Creatinine (1:x) 74.00-106.00 7.00-18.00 0.50-1.30 10.00-20.00 80 24 1.1 21.8 Na (meq/l) K (meq/l) 136.00-145.00 3.50-5.10 141 3.5 INR (PTT:PT) 0.90-1.10 1 Medication Medication Total Dose (Bolus/Oral) Medication Total Dosage/Unit 2% XYLOCAINE 50 mL AMIODARONE 300 mg Medications (Bolus/Oral) Medication Time Given Dosage/Unit Administered By Reason 2% XYLOCAINE 09/25/2017 4:47:44 PM 50 mL Charmaine Vivar 50 mL 2% XYLOCAINE given in lab by Charmaine Vivar in Right Groin via Subcutaneous. AMIODARONE 09/25/2017 5:04:26 PM 300 mg Anesthesia, DESKTOP PUBLISHER As per physicians gema bal order 300 mg AMIODARONE given in lab by Anesthesia, DESKTOP PUBLISHER via Central IV. Ordered by Charmaine Vivar. Reason: As per physicians verbal order. right jugular site Initial Case Assessment Cardiovascular Edema Present Skin color Skin Mild Normal Warm Dry Circulatory - Right Pulses Dorsalis Pedis 1 Scale (0,1,2,3,4,d) Circulatory - Left Pulses Dorsalis Pedis 1 Scale (0,1,2,3,4,d) Circulatory - Lower Extremities Color Lower Right Color Lower Left Normal Normal Neurological State Oriented to time-place- Alert Moves all extremities person Respiration - General Respiration Rate SpO2 (%) (B/min) 20 96 Final Case Assessment Cardiovascular HR Rhythm NIBP Chest Pain 95 af 111/57 0 Edema Present Skin color Skin Mild Normal Warm Dry Circulatory - Right Pulses Dorsalis Pedis 1 Scale (0,1,2,3,4,d) Circulatory - Left Pulses Dorsalis Pedis 1 Scale (0,1,2,3,4,d) Circulatory - Lower Extremities Color Lower Right Color Lower Left Normal Normal Neurological State Drowsy Moves all extremities Respiration - General Respiration Rate SpO2 (%) (B/min) 16 100 Chronological Log Time Study Chronological Log 15:36:33 Dr Vivar made aware of pt taking plavix today and INR 1 from 09/23/19. Stated "it's ok". 16:10:34 Patient arrived via Bed. 16:10:37 Patient Name, D.O.B, / Armband Verified By R.N. 16:10:39 Consent signed by the physician and the patient and verified by the Accountant Clerk staff. 16:10:49 Anesthesia at bedside. Assumes care of patient. Diego 16:15:43 Pre-op and post- op instructions given; patient acknowledges understanding of instructions. 16:15:46 Verbal Stimulation=2 Physical Stimulation=2 Airway=2 Respiration=2 TOTAL=8. (0=absent, 1=li mited, 2=present) 16:18:24 Patient has been NPO for More than 6Hrs. 16:18:26 Skin Breakdown- left wrist w dressing 16:18:35 Patient Warmer Placed on the Table. 16:18:36 Disposable Defibrillator Pads Placed On Patient. 16:18:38 Anatoly Prominences Protected 16:18:40 An IV was noted in the Jugular Vein (right). Grade = 0 0.9ns kvo connected. 16:18:42 History and physical on the chart or being dictated. 16:18:45 Unable to flush right hand 18g IV and Left AC 20g IV. 16:20:09 MD arrived. Assessed pt et orderd for temp pacer wirre to be removed. 16:21:40 Bilateral groins prepped with 2% chlorhexidine, and draped after a 3 minute waiting time. Assessment: Initial Case, Edema=Mild, Color=Normal, Skin = Warm, Dry Right Pulses: John Ped=1 Left Pulses: John Ped=1 16:24:00 Lower Right Extremities: Color=Normal Lower Left Extremities: Color=Normal Neurological: State=Alert, Ox3, COTTO Respiration: Resp=20 B/min, SpO2=96 % 16:31:04 Temporary pacer removed by 16:36:09 Table restraints applied according to hospital policy 16:40:31 Reference ECG taken 16:44:39 Case Start Time Out. Correct patient, procedure, procedure equipment, site and side verified with physicia n present. Time 16:47:00 concurred by MD, individual staff and DESKTOP PUBLISHER. Time Out #2 - Consents verified, patient in correct position, all results are labled and displa yed, safety precautions 16:47:20 taken, antibiotics administered. Time out concurred by MD, individual staff and DESKTOP PUBLISHER in procedu re 16:47:44 50 mL 2% XYLOCAINE given in lab by Charmaine Vivar in Right Groin via Subcutaneous. 16:48:32 Vascular access was obtained in the Fem Vein (right). 16:48:36 Vascular access was obtained in the Fem Vein (right). 16:48:38 Vascular access was obtained in the Fem Vein (right). 16:48:40 Vascular access was obtained in the Fem Vein (right). 16:50:25 A SHEATH, EPS, FR6 FAST CATH FR 6 was advanced into the Fem Vein (right) using the Modified Seldinger technique. 16:50:30 A SHEATH, EPS, FR5 FAST CATH FR 5 was advanced into the Fem Vein (right) using the Modified Seldinger technique. 16:50:33 A SHEATH, EPS, FR5 FAST CATH FR 5 was advanced into the Fem Vein (right) using the Modified Seldinger technique. 16:50:35 A SHEATH, EPS, FR5 FAST CATH FR 5 was advanced into the Fem Vein (right) using the Modified Seldinger technique. A CATHETER, JSN, QUAD FR 5 was advanced vis Fem Vein (right) and placed in the CS. Placement wa s visually 16:51:14 confirmed under fluoroscopy. A CATHETER, JSN, QUAD FR 5 was advanced vis Fem Vein (right) and placed in the HIS. Placement w as visually 16:52:06 confirmed under fluoroscopy. A CATHETER, JSN, QUAD FR 5 was advanced vis Fem Vein (right) and placed in the RVA. Placement w as visually 16:54:00 confirmed under fluoroscopy. A CATHETER, JSN, QUAD FR 5 was advanced vis Fem Vein (right) and placed in the HRA. Placement w as visually 16:54:23 confirmed under fluoroscopy. 16:55:40 ECG rhythm of AF noted. Patient cardioverted at 200 joules. Success synch 16:56:25 ECG rhythm of AF noted. Patient cardioverted at 200 joules. Success synch 16:56:31 EPS in progress. 300 mg AMIODARONE given in lab by Anesthesia, DESKTOP PUBLISHER via Central IV. Ordered by Charmaine Vivar. Re ason: As per 17:04:26 physicians verbal order. right jugular site 17:10:21 ECG rhythm of AF noted. Patient cardioverted at 200 joules. Success synch 17:12:23 EP Procedure was performed. 17:12:51 All catheter(s) removed without difficulty 17:12:59 Sheaths removed; pressure applied to access sites by DC. 17:14:19 Procedure performed: EPS only 17:14:44 PACU called. Spoke to [place] 17:21:17 Case End (Physician broke scrub) 17:22:28 Sterile dressing applied to site 17:22:30 No case complications noted. 17:22:34 Cine recording checked. 17:22:39 Defibrillator and ground pads removed. Skin intact. Assessment: Final Case, HR=95 BPM, Rhythm=af, VSNU=175/57 mmhg, Chest Pain=0, Edema=Mild, [place] r=Normal, Skin = Warm, Dry Right Pulses: John Ped=1 Left Pulses: John Ped=1 17:22:59 Lower Right Extremities: Color=Normal Lower Left Extremities: Color=Normal Neurological: State=Drowsy, COTTO Respiration: Resp=16 B/min, QdD4=602 % 17:29:41 [facility] Study - Contrast Media Used In Study Contrast Total Opened (mL) Total Used (mL) Total Wasted (mL) Unspecified 0 0 0 End Study - Maximum Contrast Load Max Contrast Load (mL) 436.4 End Study - Radiation Exposure Fluoro Time (minutes) 0.7 End Study - Sheaths Sheaths Pulled By Sheath Hold Time (min) Chen Schneider 10 End Study - Patient Disposition Complications Transferred To Interventional Outcome No Telemetry Bed successful
[2017-09-25] MEDS ORDERED: fentaNYL Citrate Inj 100 MCG/2 ML Ampul ONE (17:44)
--- NOTE | 2017-09-25 19:09 | MB ---
cc: Charmaine Vivar MD DATE: 09/24/2017 REASON FOR CONSULTATION: New AV block, status post TAVR, new left bundle branch block. HISTORY OF PRESENT ILLNESS: Mrs. Gore is a 77-year-old female with history of high blood pressure, hyperlipidemia, atrial fibrillation, on anticoagulation, normal ejection fraction, severe aortic stenosis, status post TAVR. The patient developed left bundle branch block. I was consulted for evaluation and management. The chart was reviewed. The patient was evaluated. ALLERGIES: ADHESIVE TAPE AND PENICILLIN. SOCIAL HISTORY: Negative for smoking or drinking. FAMILY HISTORY: Noncontributory to current medical condition. MEDICATIONS: The patient is on acetaminophen, she is on Plavix 75 mg a day, Lasix 20 mg a day, hydralazine p.r.n., metformin was on hold, Percocet Pravachol and vancomycin. REVIEW OF SYSTEMS: The patient referred no chest pain, no chest discomfort, feeling tired, no fever. PHYSICAL EXAMINATION: GENERAL: Alert, fully oriented. VITAL SIGNS: Blood pressure is 140/75, pulse 67, respiratory rate 18. LUNGS: Ventilated. CARDIOVASCULAR: S1, S2, regular. ABDOMEN: Soft. No mass, no bruit. EXTREMITIES: No edema. . SKIN: Area with central line temporary pacemaker. STUDY: Electrocardiogram showed left bundle branch block. LABORATORY DATA: Hemoglobin 10.1. ASSESSMENT AND RECOMMENDATIONS: Mrs. Gore is in sinus rhythm. She has left bundle branch block, that is new post transcatheter aortic valve replacement. That may be indicative of disease. It may lead to AV block. She is going to need electrophysiology study and if disease found, she is going to need a permanent pacemaker. Case extensively discussed with her. The risks, the nature and the benefits of the procedure are clearly stated to her. Risks include pneumothorax, cardiac perforation, stroke and even . She understood and agreed to proceed. The procedure will be scheduled in the morning. Charmaine Vivar MD /BEBO , 06:49 PM , 07:07 PM
--- NOTE | 2017-09-25 19:27 | MP ---
cc: Charmaine Vivar MD, Hanscy MD Minor,Rafi William MD DATE OF OPERATION: 09/25/2017 PROCEDURE: CS cannulation, repeat electrophysiology study on Isuprel infusion and cardioversion. INDICATIONS: Mrs. Gore is a 77-year-old female status post TAVR due to left bundle branch block. She will undergo electrophysiology study. The risks, the nature and the benefits of the procedure were clearly stated to her. Risks include pneumothorax, cardiac perforation, infection, stroke and even . She understood and agreed to proceed. DESCRIPTION OF PROCEDURE: After written informed consent was obtained, the patient was brought to the EP lab where she was prepped and draped in the usual sterile fashion. Conscious sedation was initiated and maintained throughout the procedure by anesthesiologist. Once sedation was verified, the right inguinal area was anesthetized with 2% Xylocaine. Using modified Seldinger technique, the right femoral vein was cannulated on 4 occasions, 4 guidewires were advanced. Over the wire, three 5 and a 6-Polish Hemaquet were advanced. Then, under fluoroscopic guidance through the 5 and 6-Polish Hemaquet, four 5 Polish a curved quadripolar electrophysiology catheters were advanced and placed on the His, upper right atrium, coronary sinus and right ventricular apex. Basic interval was measured in right ventricular apex. The patient was in atrial fibrillation. The temporary pacemaker in the right jugular vein was removed. I did cardiovert the patient and patient back into atrial fibrillation. I did cardiovert the patient again and the patient back into atrial fibrillation. HV interval was around 60 milliseconds at the most. Then, ventricular pacing protocol was performed. No tachyarrhythmia was induced. At that point, because there is no disease, I decided to proceed with amiodarone infusion. 300 mg IV was given. The patient's heart rate dropped in the 80s. I just cardioverted again, the patient after a moment back in atrial fibrillation. Atrial pacing was performed post-cardioversion. As soon as we established atrial pacing, there was a long pause and the patient went in atrial fibrillation again. At that point, heart rate controlled, patient on and off in sinus rhythm. Procedure was complete. All catheters were removed. The patient tolerated the procedure. No incident to report. 1. ELECTROCARDIOGRAM: At baseline, the patient was in atrial fibrillation with a fast heart rate. Post-procedure, the patient in atrial fibrillation with a controlled heart rate. 2. BASIC INTERVAL: Base cycle length was around on 460 milliseconds. The HV was around 60 milliseconds or less. 3. VENTRICULAR PACING PROTOCOL. No tachyarrhythmia was induced. CONCLUSION: 1. Atrial fibrillation. 2. Negative electrophysiology study for disease COMMENT AND RECOMMENDATION: The patient was on sotalol. Sotalol will be discontinued. We will put on amiodarone. We will continue on the anticoagulation. The patient has a loop recorder. No need for pacing support at this point. MD GIO Luna/ , 06:56 PM , 07:26 PM
[2017-09-26] MEDS: Ferrous Sulfate 325 MG Tablet PO SCH (08:27)
[2017-09-26] MEDS: Furosemide 40 MG Tablet PO SCH (08:28)
[2017-09-26] MEDS: levETIRAcetam 250 MG Tablet PO SCH (08:28)
[2017-09-26] MEDS ORDERED: Amiodarone 200 MG Tablet PO SCH (10:00)
--- NOTE | 2017-09-26 10:11 | P.PNCA ---
Subjective Interval history: Feeling okay. Remains in atrial fib. Physical Exam Vital signs: Vital Signs 09/25/17 12:00 09/25/17 16:00 09/25/17 17:38 Temperature 98.3 F 98.3 F 98.3 F Pulse Rate 68 81 99 H Respiratory Rate 21 21 Blood Pressure 128/63 112/59 L 132/85 Pulse Oximetry 98 99 99 09/25/17 17:45 09/25/17 18:00 09/25/17 18:15 Temperature Pulse Rate 83 83 79 Respiratory Rate 21 17 20 Blood Pressure 129/58 L 121/58 L 122/58 L Pulse Oximetry 99 99 100 09/25/17 18:30 09/25/17 18:43 09/25/17 18:58 Temperature 97.6 F Pulse Rate 87 105 H 100 H Respiratory Rate 18 20 20 Blood Pressure 134/60 140/62 120/66 Pulse Oximetry 99 95 09/25/17 19:13 09/25/17 20:00 09/25/17 21:45 Temperature 98.3 F 98.3 F Pulse Rate 97 H 99 H Respiratory Rate 18 18 Blood Pressure 130/75 135/96 H Pulse Oximetry 99 98 09/25/17 22:13 09/25/17 23:00 09/26/17 00:13 Temperature 98.4 F Pulse Rate 105 H 105 H 102 H Respiratory Rate 18 18 Blood Pressure 114/62 109/65 Pulse Oximetry 95 99 09/26/17 03:00 09/26/17 04:00 09/26/17 07:30 Temperature Pulse Rate 89 Respiratory Rate 18 Blood Pressure Pulse Oximetry 97 Intake & Output 09/25/17 09/26/17 09/26/17 18:59 06:59 18:59 Intake Total 920 / 920 Output Total 1400 / 1400 Balance -480 / -480 Weight 210 lb 8.663 oz Intake: Oral 920 / 920 Output: Urine 1400 / 1400 Other: # Voids 3 Date of Last Bowel Movement 09/26/17 # Bowel Movements 0 - Constitutional no acute distress - Routine HEENT Exam Head: Present: normocephalic, atraumatic ENT: Present: mucous membranes moist - Routine Neck Exam Present: supple - Routine Respiratory Exam Present: CTA bilaterally - Routine Cardiovascular Exam Present: S1, S2, irregular rhythm - Routine Abdominal Exam Present: soft, normoactive bowel sounds - Routine Skin Exam Present: intact Comments: Groin site soft without bruising or bleeding. - Routine Neurological Exam Present: alert, oriented X3 - Detailed Neurological Exam: Coma Scale Eye Opening: Spontaneous - Routine Psychiatric Exam Present: normal affect - Urinary Catheter Management Indwelling Temp Sensing Catheter Cath placed during this visit: yes, but has since been removed by the nurse Reason for continuing: Hourly intake/output Insertion date: 09/24/17 Insertion time: 13:18 Removal date: 09/25/17 Removal time: 04:00 Assessment and Plan - Assessment (1) Atrial fibrillation Code(s): I48.91 - Unspecified atrial fibrillation Status: Acute Plan: DC sotalol, amiodarone 400 mg p.o. daily 5 days then 200 mg daily. Resume Pradaxa when cleared by cardiac surgery. Will need to continue anticoagulation for a minimum of 3 months per my discussion with Dr. Vivar. (1) Atrial fibrillation Qualifiers: Atrial fibrillation type: unspecified Qualified Code(s): I48.91 - Unspecified atrial fibrillation
--- NOTE | 2017-09-26 10:43 | P.DS ---
Date of admission: 09/24/17 10:25 Primary care physician: Tiffany Moreno Brief History from admission: Patient has diagnosis of severe aortic valve stenosis with symptoms. Patient was evaluated by cardiothoracic surgery and felt to be intermediate risk for surgical aortic valve replacement. Patient was scheduled electively for transcatheter aortic valve replacement. DS: Diagnosis - Discharge Diagnosis (1) Aortic stenosis Status: Acute (2) Diastolic heart failure Status: Acute (3) Atrial fibrillation Status: Acute DS: Summary Hospital Course: Patient was scheduled electively for transcatheter aortic valve replacement with diagnosis of severe aortic valve stenosis. Patient underwent transcatheter valve replacement without complication. Patient was recovered in the intensive care unit. We did notice on electrocardiogram that she developed a bundle branch block, electrophysiology Dr. Vivar evaluated the patient and she underwent electrophysiology study which determined that pacemaker was not necessary. Patient had otherwise unremarkable hospital course and is ready for discharge. - Time Spent with Patient Total time spent providing and/or coordinating discharge services: Exam Vital signs: Vital Signs 09/25/17 12:00 09/25/17 16:00 09/25/17 17:38 Temperature 98.3 F 98.3 F 98.3 F Pulse Rate 68 81 99 H Respiratory Rate 21 21 Blood Pressure 128/63 112/59 L 132/85 Pulse Oximetry 98 99 99 09/25/17 17:45 09/25/17 18:00 09/25/17 18:15 Temperature Pulse Rate 83 83 79 Respiratory Rate 21 17 20 Blood Pressure 129/58 L 121/58 L 122/58 L Pulse Oximetry 99 99 100 09/25/17 18:30 09/25/17 18:43 09/25/17 18:58 Temperature 97.6 F Pulse Rate 87 105 H 100 H Respiratory Rate 18 20 20 Blood Pressure 134/60 140/62 120/66 Pulse Oximetry 99 95 09/25/17 19:13 09/25/17 20:00 09/25/17 21:45 Temperature 98.3 F 98.3 F Pulse Rate 97 H 99 H Respiratory Rate 18 18 Blood Pressure 130/75 135/96 H Pulse Oximetry 99 98 09/25/17 22:13 09/25/17 23:00 09/26/17 00:13 Temperature 98.4 F Pulse Rate 105 H 105 H 102 H Respiratory Rate 18 18 Blood Pressure 114/62 109/65 Pulse Oximetry 95 99 09/26/17 03:00 09/26/17 04:00 09/26/17 07:30 Temperature Pulse Rate 89 Respiratory Rate 18 Blood Pressure Pulse Oximetry 97 Intake & Output 09/25/17 09/26/17 09/26/17 18:59 06:59 18:59 Intake Total 920 / 920 Output Total 1400 / 1400 Balance -480 / -480 Weight 95.5 kg Intake: Oral 920 / 920 Output: Urine 1400 / 1400 Other: # Voids 3 Date of Last Bowel Movement 09/26/17 # Bowel Movements 0 - Constitutional no acute distress - Routine HEENT Exam Head: Present: normocephalic Eye: Present: EOMI, PERRL ENT: Present: mucous membranes moist - Routine Neck Exam Absent: JVD - Routine Chest/Breast/Axilla Exam Chest wall: Absent: tenderness - Routine Respiratory Exam Present: CTA bilaterally - Routine Cardiovascular Exam Present: S1, S2, irregularly irregular - Routine Abdominal Exam Present: soft, normoactive bowel sounds - Routine Neurological Exam Absent: sensory deficit, motor deficit Results Procedures completed during hospitalization: Transcatheter aortic valve replacement Electrophysiology study Discharge Plan - Discharge Disposition Patient Disposition: Discharge Home - Discharge Condition Condition: Good - Discharge Order Discharge Orders: Discharge Order (Routine); Ordered 09/26/17 Ordered By: Rafi Devries Cardiology Clear for Discharge (Routine); Ordered 09/26/17 Ordered By: Rafi Devries - Discharge Details Anticipated Discharge Date: 09/26/17 - Physicians Team Primary Care Provider: Tiffany Moreno Attending Provider: Rafi Devries Other Providers: Rai Calvo MD ; Charmaine Vivar MD - Rxs /Orders / Referrals /Forms Prescriptions: New amiodarone 200 mg Tablet 400 mg PO DAILY Qty: 5 RF: 0 amiodarone 200 mg Tablet 200 mg PO DAILY Qty: 25 RF: 0 clopidogrel [Plavix] 75 mg Tablet 75 mg PO DAILY Qty: 30 RF: 3 ferrous sulfate [FeroSul] 325 mg (65 mg iron) Tablet 325 mg PO DAILY Qty: 30 RF: 2 furosemide 40 mg Tablet 20 mg PO DAILY RF: 0 Continue dabigatran etexilate [Pradaxa] 150 mg Capsule 150 mg PO BID levetiracetam [Keppra] 250 mg Tablet 250 mg PO Q12H lovastatin 20 mg Tablet 20 mg PO QPM No Action hydrochlorothiazide 25 mg Tablet 25 mg PO DAILY sotalol 80 mg Tablet 80 mg PO Q12H Referrals: Tiffany Moreno MD [Primary Care Provider] - See Instructions - Discharge Instructions Additional Instructions: 30-day follow up appointments as follows: 10/27/17 at 10am Echocardiogram at [facility] office 11/03/17 245pm TAVR follow up with Dr Farzad Emanuel [facility] [place] office 1-year follow up as follows: 09/25/18 830am Echocardiogram at [facility] office 09/30/18 9am [facility]
--- NOTE | 2017-09-26 11:11 | P.PNCA ---
- Note Subjective/Hospital Course: 77-year-old female with severe symptomatic aortic stenosis who presents for elective transcatheter aortic valve replacement via groin access. history of high blood pressure, hyperlipidemia, atrial fibrillation, on anticoagulation, normal ejection fraction, severe aortic stenosis, status post TAVR. The patient developed left bundle branch block. I EP study completed per EP note DC sotalol, amiodarone 400 mg p.o. daily 5 days then 200 mg daily. . Will need to continue anticoagulation for a minimum of 3 months 09/26 pt stable from CVS standpoint to dc home Objective: Vital Signs - 24 hr 09/25/17 12:00 09/25/17 16:00 09/25/17 17:38 Temperature 98.3 F 98.3 F 98.3 F Pulse Rate 68 81 99 H Respiratory Rate 21 21 Blood Pressure 128/63 112/59 L 132/85 Pulse Oximetry 98 99 99 09/25/17 17:45 09/25/17 18:00 09/25/17 18:15 Temperature Pulse Rate 83 83 79 Respiratory Rate 21 17 20 Blood Pressure 129/58 L 121/58 L 122/58 L Pulse Oximetry 99 99 100 09/25/17 18:30 09/25/17 18:43 09/25/17 18:58 Temperature 97.6 F Pulse Rate 87 105 H 100 H Respiratory Rate 18 20 20 Blood Pressure 134/60 140/62 120/66 Pulse Oximetry 99 95 09/25/17 19:13 09/25/17 20:00 09/25/17 21:45 Temperature 98.3 F 98.3 F Pulse Rate 97 H 99 H Respiratory Rate 18 18 Blood Pressure 130/75 135/96 H Pulse Oximetry 99 98 09/25/17 22:13 09/25/17 23:00 09/26/17 00:13 Temperature 98.4 F Pulse Rate 105 H 105 H 102 H Respiratory Rate 18 18 Blood Pressure 114/62 109/65 Pulse Oximetry 95 99 09/26/17 03:00 09/26/17 04:00 09/26/17 07:30 Temperature Pulse Rate 89 Respiratory Rate 18 Blood Pressure Pulse Oximetry 97 GENERAL: SKIN: Warm and dry. dressing to both groin sites intact, no hematoma HEAD: Normocephalic. EYES: No scleral icterus. No injection or drainage. NECK: Supple, trachea midline. No JVD or lymphadenopathy. CARDIOVASCULAR: irregular rate and rhythm without murmurs, gallops, or rubs. RESPIRATORY: Breath sounds equal bilaterally. No accessory muscle use. GASTROINTESTINAL: Abdomen soft, non-tender, nondistended. MUSCULOSKELETAL: No cyanosis, or edema. BACK: Nontender without obvious deformity. No CVA tenderness. Result Diagrams: 09/25/17 04:00 09/25/17 04:00 - Plan (1) S/P TAVR (transcatheter aortic valve replacement) Plan: stable for dc home from CVS standpoint (4) Atrial fibrillation (4) Atrial fibrillation Qualifiers: Atrial fibrillation type: unspecified Qualified Code(s): I48.91 - Unspecified atrial fibrillation
[2017-10-01] MEDS ORDERED: Amiodarone 200 MG Tablet PO SCH (09:00)
== END 2017-09-26 13:24 | disposition home or self-care (01) ==
LOC: HDIC 10:25 → HCVI 15:02
PROVIDERS: ADMIT Internal Medicine; ATTEND Internal Medicine
PROC: TAVRHYB (ICD-10-PCS; 2017-09-24 12:42)